=== PATIENT | male | born 1960 | race Caucasian/White ===

== ENCOUNTER 2021-02-24 02:34 | Emergency (ER) | payer MEDICAID ==
[~2021-02-24] VITALS: Ht 175.3 cm; Wt 64.1 kg
[~2021-02-24 02:34] MED LIST: GLIP5TAB10 PO; LINA5TAB PO; METF500T17 PO
--- NOTE | 2021-02-24 02:45 | NUR ---
pt BIBA for overdose on cocaine lased with fentanyl, EMS gave pt 6mg of narcan to get pt to respond, pt currently a/ox4, pt states "i dont know" or "[place]" after most questions, pt has a history of diabetes that pt states he hasnt taken anything for in a long time, pt allergic to penicillin, pt was found at a motel near by [facility]
--- NOTE | 2021-02-24 03:36 | NUR ---
pt asleep in bed, all needs in reach, call light in reach, NAD
--- NOTE | 2021-02-24 04:03 | NUR ---
pt asleep in bed, all needs in reach, call light in reach, NAD
[2021-02-24 05:47] VITALS: BP 129/81
--- NOTE | 2021-02-24 05:48 | NUR ---
pt woke up and was a/ox4, pt ambulated on his own without assistance and was steady on his feet, pt stated he lived at a motel a few [place] meters from [facility] and would just walk home
== END 2021-02-24 05:49 | disposition home or self-care (01) ==
LOC: ED 02:35
DX: T40.411A Poisoning by fentanyl or fentanyl analogs, accidental (unintentional), initial encounter (principal); T40.5X1A Poisoning by cocaine, accidental (unintentional), initial encounter; F14.129 Cocaine abuse with intoxication, unspecified; F11.10 Opioid abuse, uncomplicated; E11.9 Type 2 diabetes mellitus without complications; R94.31 Abnormal electrocardiogram [ECG] [EKG]; Y92.9 Unspecified place or not applicable
CPT/HCPCS: 93005; 99283